=== PATIENT | male | born 1935 | race Caucasian/White ===

== ENCOUNTER 2017-10-17 00:26 | Emergency (ER) | payer OTHER, MEDICARE ==
[~2017-10-17] VITALS: Ht 165.1 cm; Wt 80.7 kg
--- NOTE | 2017-10-17 01:33 | ED NOSE COMPLAINT ---
History of Present Illness General Chief Complaint: Epistaxis/Nasal Foreign Body Stated Complaint: PT C/O EPISTAXIS ON COUMADIN Source: patient, family Exam Limitations: no limitations Vital Signs & Intake/Output Vital Signs & Intake/Output Vital Signs Date Time Temp Pulse Resp B/P B/P Pulse O2 O2 Flow FiO2 Mean Ox Delivery Rate 10/17 0124 98.4 73 20 147/74 94 Room Air Triage Note: PT FROM HOME WITH REPORTS OF SPONTANEOUS NOSE BLEED THAT BEGAN AT 2200. PT REPORTS BEING ON COUMADIN. PT REPORTS HAVING NOSE BLEEDS IN PAST AND HAVING TO BE CAUTERIZED. PT WITH TISSUE IN NOSE, BLEEDING CONTROLLED. Triage Nurses Notes Reviewed? yes Onset: Abrupt Duration: hour(s): Timing: recent history Injury Environment: home Severity: mild, moderate Modifying Factors: Improves With: rest. Associated Symptoms: left nare bleeding HPI: 81 yo gentleman on coumadin for afib, presents with bleeding from left nare x 2 hours, occasional clots, without significant blood tracking posteriorly. Bleeding has resolved with placing a napkin into nare. His inr was recently between 2-3 last week. He notes no chest pain, shortness of breath, dyspnea. He is otherwise well. Past History Travel History Traveled to [place] past 21 day No Medical History Any Pertinent Medical History? see below for history Neurological: NONE EENT: epistaxis Cardiovascular: AFIB Respiratory: NONE Gastrointestinal: NONE Hepatic: NONE Renal: NONE Musculoskeletal: sciatica Psychiatric: NONE Endocrine: diabetes Blood Disorders: NONE Cancer(s): NONE CONDUIT BENDER/Reproductive: NONE Pneumonia Vaccine: 01/31/09 Influenza Vaccine: 03/08/11 Surgical History Surgical History: non-contributory Psychosocial History What is your primary language Azeri Tobacco Use: Never used ETOH Use: denies use Illicit Drug Use: denies illicit drug use Family History Hx Contributory? No Review of Systems Review of Systems Constitutional: Reports: no symptoms. EENTM: Reports: no symptoms. Respiratory: Reports: no symptoms. Cardiovascular: Reports: no symptoms. GI: Reports: no symptoms. Genitourinary: Reports: no symptoms. Musculoskeletal: Reports: no symptoms. Skin: Reports: no symptoms. Neurological/Psychological: Reports: no symptoms. Hematologic/Endocrine: Reports: no symptoms. Immunologic/Allergic: Reports: no symptoms. All Other Systems: Reviewed and Negative Physical Exam Physical Exam General Appearance: well developed/nourished, mild distress Head: atraumatic Eyes: Bilateral: normal appearance. Ears: Bilateral: canal normal. Nose: normal inspection, mild oozing blood from left nare Mouth/Throat: normal mouth inspection, pharynx normal Neck: normal inspection, supple Cardiovascular/Respiratory: normal breath sounds, regular rate/rhythm Back: normal inspection Neurologic/Psych: awake, alert, oriented x 3, normal mood/affect Skin: intact, normal color, warm/dry Progress Differential Diagnoses I considered the following diagnoses in my evaluation of the patient: left nare bleeding... anterior vs posterior. Plan of Care: Orders Procedure Date/time Status PARTIAL THROMBOPLASTIN TIME 10/17 46 Complete PROTHROMBIN TIME 10/17 46 Complete CBC WITHOUT DIFFERENTIAL 10/17 46 Complete BASIC METABOLIC PANEL 10/17 46 Complete Laboratory Tests 10/17/17 0110: Anion Gap 9, Estimated GFR 45 L, BUN/Creatinine Ratio 23.3, Glucose 128 H, Calcium 8.9, PT 68.7 *H, INR 6.19 *H, APTT 49 H, CBC w Diff NO MAN DIFF REQ, RBC 5.03, MCV 90.2, MCH 30.3, MCHC 33.6, RDW 13.6, MPV 8.5, Gran % 64.1, Lymphocytes % 22.1, Monocytes % 6.8, Eosinophils % 0.8, Basophils % 6.2 H, Absolute Granulocytes 6.3, Absolute Lymphocytes 2.2, Absolute Monocytes 0.7 H, Absolute Eosinophils 0.1, Absolute Basophils 0.6 Initial ED EKG: none Departure Departure Disposition: HOME OR SELF CARE Condition: Stable Clinical Impression Primary Impression: Bleeding nose Secondary Impressions: Elevated INR, Elevated serum creatinine Referrals: Lilly ROSEN,[facility] Post (PCP/Family) Departure Forms: Customer Survey General Discharge Information Comments excellent result after 1 hour in the ed. Procedures Epistaxis/Nasal Foreign Body Status: bleeding Nasal Drops Instilled: Left: Lonnie-Synephrine. Ext Pressure/Nose Pinch (min): 20 Inspected With: otoscope Bleeding Site: left nare, septum Applied: Left: Gauze Anterior, Gauze Posterior. Progress: excellent result
[2017-10-17 01:44] LABS: ABSOLUTE BASOPHIL COUNT 0.6 /CUMM (0.0-0.2); ABSOLUTE EOSINOPHIL COUNT 0.1 /CUMM (0.0-0.7); ABSOLUTE GRANULOCYTE CT 6.3 /CUMM (1.4-6.5); ABSOLUTE LYMPH COUNT 2.2 /CUMM (1.2-3.4); ABSOLUTE MONOCYTE COUNT 0.7 /CUMM (0.10-0.60); BASOPHIL % 6.2 % (0.0-2.0); EOSINOPHIL % 0.8 % (0-5); GRANULOCYTE % 64.1 % (42.2-75.2); HEMATOCRIT 45.4 % (42-52); MEAN CORPUSCULAR HGB 30.3 PG (27.0-31.0); MEAN CORPUSCULAR HGB CONC 33.6 G/DL (33.0-37.0); MEAN CORPUSCULAR VOLUME 90.2 FL (80.0-94.0); MEAN PLATELET VOLUME 8.5 FL (7.4-10.4); PLATELET COUNT 190 /CUMM (130-400); RBC DISTRIBUTION WIDTH 13.6 % (11.5-14.5); RED BLOOD CELL CT 5.03 /CUMM (4.70-6.10); WHITE BLOOD CELL COUNT 9.9 /CUMM (4.8-10.8)
[2017-10-17 02:07] LABS: PTT 49 SEC (25-37)
[2017-10-17 02:25] LABS: PT 68.7 SEC (9.4-12.5)
[2017-10-17] MEDS ORDERED: COUMADIN2.5 M1 PO (02:51)
[2017-10-17 02:52] VITALS: BP 142/74
[2017-10-17] MEDS ORDERED: COUMADIN5 M2 PO (02:52)
== END 2017-10-17 02:53 ==
LOC: ERH 00:26
PROVIDERS: Pediatrics
DX: R04.0 Epistaxis (principal); R79.1 Abnormal coagulation profile; R79.89 Other specified abnormal findings of blood chemistry; Z87.891 Personal history of nicotine dependence